=== PATIENT | male | born 1960 | race Caucasian/White ===

== ENCOUNTER 2018-09-06 18:45 | Emergency (ER) | payer SELFPAY ==
[2018-09-06 18:46] VITALS: BP 141/92; PULSE 80; RESP 14; TEMP 37.1; O2SAT 93; BMI 20.9
[2018-09-06 19:33] VITALS: TEMP 37.1
[2018-09-06 20:00] VITALS: TEMP 37.1
[2018-09-06 20:36] LABS: Mucous, Urine 0 SEEN /hpf (<or=2+); Squamous Epithelial Cells - UA 0 SEEN /hpf (0-5)
[2018-09-06 20:43] LABS: Color, Urine Red (Yellow); Glucose, Dipstick Normal (Normal); Ketone-Dipstick 5 mg/dl (Negative); Leukocyte Esterase-Dipstick 500 /ul (Negative); Nitrite-Dipstick Positive (Negative); Occult Blood-Urine 250 /ul (Negative); Protein-Dipstick 500 mg/dl (Negative); Specific Gravity, Urine 1.015 (1.002-1.030); Urine Bilirubin Dipstick Negative (Negative); Urine Clarity Cloudy (Clear); Urine Urobilinogen 1 mg/dl (Normal)
[2018-09-06 20:51] LABS: Bacteria 1+ /hpf (None Seen); Red Blood Cells-Urine > 100 SEEN /hpf (0-5); White Blood Cells >100 SEEN /hpf (0-5)
[2018-09-06 21:00] VITALS: BP 145/88; PULSE 88; RESP 16; TEMP 37; O2SAT 99
--- NOTE | 2018-09-06 21:31 | ED.DCSUM_ITS ---
History of Present Illness Chief Complaint: Complaint Detail of Chief Complaint: dysuria Informant: Patient Onset: Weeks - 2 Context: Gradual Onset Timing: Continuous - when urinating Quality: discomfort Location: entire penis Current Severity: Moderate Maximum Severity: Moderate Worsened by: urinating Relieved by: nothing Associated Symptoms: hemturia x 4d Narrative: Patient has had about 2 weeks of gradual onset of discomfort while urinating and urinary frequency. He thinks his urine stream has not been unchanged. He denies any nocturia. No fevers, back discomfort, or abdominal pain. No nausea or vomiting. Now hematuria that looks like Kadeem-Aid with some clots for the past 4 days or so. He has never had any prostate issues that he knows of, but he is having discomfort in his perineal area especially when he urinates. No scrotal pain. He has noticed a trace amount of discharge in between urinating since he has had hematuria, but it looks like serosanguineous. He is monogamous, but had a suspicion that may be his significant other was untruthful when she said she was only with him. He has never had gonorrhea or chlamydia that he knows of. Past Medical History - Allergies and Home Meds Allergies/Adverse Reactions: Allergies No Known Allergies Allergy (Verified 09/06/18 18:46) Primary Care Physician: Eddy Cooper MD [Primary Care Provider] - Past Medical History: None Lives: Spouse/ Significant Other Smoking Status: Current every day smoker Review of Systems General: Denies: Chills, Fever Cardiovascular: Denies: Chest pain, Palpitations Respiratory: Denies: Dyspnea, Cough Gastrointestinal: Reports: - - Feels bloated. Denies: Abdominal pain, Nausea, Vomiting Genitourinary: Reports: Dysuria, Hematuria, Frequency, - - Urgency. No urinary retention. Musculoskeletal: Reports: Arthralgias - Chronic, unchanged, Back pain - Musculoskeletal, chronic, unchanged. Denies: Swelling, Extremity Pain Skin: Denies: Rash, Wounds Physical Exam Vital Signs/Narrative: Vital Signs Temp Pulse Resp BP Pulse Ox 09/06/18 20:00 98.7 F 09/06/18 19:33 98.8 F 09/06/18 18:46 98.8 F 80 14 141/92 H 93 Inital Vital Signs reviewed: Yes General: Well nourished, Well developed, No Acute Distress Head: Normocephalic, Atraumatic Abdomen: Soft, Nontender, Nondistended, Normal bowel sounds Rectal: Nontender - Specifically, prostate feels smooth without irregularities and is nontender. Back: Nontender, Normal Inspection. Negative for: CVA tenderness Extremities: Nontender, No edema Skin: Normal color, No rash, No Trauma Neurological: Alert, Oriented x3, Cranial nerves II-XII grossly intact, Normal Strength, Normal Sensation, Normal Gait Psychological: Normal affect, Normal Mood Diagnostic/Tx/Re-eval Laboratory Tests 09/06/18 Range/Units 18:35 Urine Color Red (Yellow) Urine Clarity Cloudy (Clear) Urine pH 8.0 (5.0 - 8.0) Ur Specific [place] 1.015 (1.002-1.030) Urine Protein 500 H (Negative) mg/dl Urine Glucose (UA) Normal (Normal) mg/dl Urine Ketones 5 H (Negative) mg/dl Urine Occult Blood 250 H (Negative) /ul Urine Nitrite Positive H (Negative) Urine Bilirubin Negative (Negative) mg/dL Urine Urobilinogen 1 H (Normal) mg/dl Ur Leukocyte Esterase 500 H (Negative) /ul Urine RBC > 100 SEEN (0-5) /hpf Urine WBC >100 SEEN (0-5) /hpf Ur Squamous Epith Cells 0 SEEN (0-5) /hpf Urine Bacteria 1+ (None Seen) /hpf Urine Mucus 0 SEEN (<or=2+) /hpf - Medical Decision Making Labs shows pyuria and signs of infection. Sent for culture. He declines Laura catheter for irrigation even knowing the risks of urinary retention which he has not had yet. I sent for GC and chlamydia which is pending. He would like to be covered for that just in case, so I will give him an injection of Rocephin in addition to a prescription for Doxy. Will be advised to follow-up with urology as an outpatient. No flank pain, I felt like with a positive urine and likely having cystitis, I did not feel the need to CT him at this time. ED Disposition - Plan for ED Patient: Disposition: Home or Assisted Living Diagnosis: Hemorrhagic cystitis Instructions: ED UTI Cystitis Male Prescriptions: Doxycycline 100 mg PO BID #20 cap Phenazopyridine HCl [Pyridium] 200 mg PO TID #6 tab Referrals: Eddy Cooper MD [Primary Care Provider] - Eliecer Hill MD [STAFF PHYSICIAN] - (Call for appointment next week)
[2018-09-06] MEDS: Ceftriaxone 500 MG Vial 250 MG IM (22:03)
[2018-09-06] MEDS: Phenazopyridine 95 MG Tablet PO (22:03)
[2018-09-06] MEDS: Doxycycline 100 MG CAPSULE PO (22:04)
[2018-09-06 22:05] VITALS: BP 184/89; PULSE 97; RESP 16; O2SAT 100
--- NOTE | 2018-09-06 22:19 | ED.RN ---
PT WAS OBSERVED SHOT TIME, NO REACTION NOTED BY THIS NURSE.
[2018-09-06 22:28] LABS: Chlamydia Trachomatis by PCR Negative (Negative); Neisserai gonorrhoeae by PCR Negative (Negative); Probe Check PASS; Sample Adequacy Control PASS; Specimen Processing Control PASS
== END 2018-09-06 22:20 | disposition home or self-care (01) ==
PROVIDERS: Emergency Provider Emergency Medicine; Family Provider Family Medicine; PCP Family Medicine
DX: N30.91 Cystitis, unspecified with hematuria (principal); F17.200 Nicotine dependence, unspecified, uncomplicated
CPT/HCPCS: 81001; 87086; 87491; 87591; 96372; 99283

== ENCOUNTER 2019-10-06 15:50 | Emergency (ER) | payer SELFPAY ==
[2019-10-06 15:51] VITALS: BP 118/72; PULSE 57; RESP 20; TEMP 36.7; O2SAT 100; BMI 20.4
--- NOTE | 2019-10-06 15:57 | ED.RN ---
WHILE ATTEMPTING TO TRIAGE THE PT. WHEN ASKED HOW LONG CHEST PAIN WAS OCCURRING PT STATES FUCK I DON'T KNOW. I ALREADY FUCKING TOLD YOU. WHERE THE FUCK IS THE DOCTOR? THIS IS BULLSHIT. WHEN ASKED TO RATE HIS CHEST PAIN PT STATES IT IS FUCKING GONE. I DON'T HAVE ANY FUCKING CHEST PAIN, THE PAIN IS IN MY LOWER BACK. I SHOULD JUST FUCKING GO HOME NOW. PT REQUESTING SOMETHING TO DRINK. THIS NURSE INFORMED THE PT THAT HE WOULD HAVE TO WAIT FOR SOMETHING TO DRINK UNTIL THE DOCTOR WAS ABLE TO SEE HIM. PT STATES THIS IS FUCKING BULLSHIT. I NEED SOMETHING TO DRINK. WHERE THE FUCK IS THE DOCTOR? GIVE ME ONE OF THOSE FUCKING MOUTH SWAB THINGS. MY MOUTH IS SO DRY MY LIPS ARE STICKING TO MY TEETH. WHEN ASKED ABOUT HIS ALLERGIES THAT PT STATES I DON'T KNOW IT'S FUCKING IN THERE. PT INFORMED THAT THE COMPUTER SYSTEM HAS HIM LISTED NO KNOWN ALLERGIES.
--- NOTE | 2019-10-06 16:11 | CT_ITS ---
STUDY: CTA OF THE ABDOMINAL AORTA AND BILATERAL LOWER EXTREMITIES REASON FOR EXAM: Male, 59 years old. Chest, abdomen and back pain RADIATION DOSAGE (If Supplied By Facility): CTDIvol = ( 12.74 ) mGy, DLP = ( 492.22 ) mGycm TECHNIQUE: Axial CT angiography multi-detector data acquisition was obtained from the diaphragm to the sacrum following intravenous administration of Isovue 370 100ml. Axial images and MIP images were reconstructed from the axial data set. Post-processing of the angiographic images was performed, with multiplanar reformation and 3D reconstruction. Individualized dose optimization techniques were used for this CT. TECHNICAL QUALITY: Good COMPARISON: None. Descriptors of Narrowing: None (0%) Mild (< 50%) Moderate (50-70%) Severe (70-90%) Subtotal/Total Occlusion (90-100%) Non-Evaluable (technically non-diagnostic FINDINGS: Abdominal aorta: Atherosclerotic calcifications. No aneurysm or dissection Celiac and superior mesenteric arteries: There is mild proximal narrowing. Inferior mesenteric artery: No demonstrated narrowing. Right renal artery(arteries): No demonstrated narrowing. Left renal artery(arteries): No demonstrated narrowing. Right common iliac artery: There is mild diffuse narrowing. Right external iliac artery: No demonstrated narrowing. Right internal iliac artery: No demonstrated narrowing. Left common iliac artery: There is mild diffuse narrowing. Left external iliac artery: No demonstrated narrowing. Left internal iliac artery: No demonstrated narrowing. The visualized lung bases are unremarkable. The visualized portions of the heart are within normal limits. Normal liver. Normal gallbladder and extrahepatic biliary system. Normal spleen. Normal pancreas. Normal bilateral adrenal glands. Normal right kidney. Normal left kidney. Normal visualized stomach. Normal small intestine. There are multiple colonic diverticula consistent with diverticulosis. There is non-visualization of the appendix. Normal inferior vena cava. Normal retroperitoneum. Normal abdominal wall. There is degenerative change of the spine. CT/CTA Abdomen W/WO Contrast IMPRESSION: Atherosclerotic calcifications. No aneurysm or dissection. Colonic diverticulosis. Electronically Signed: Robert Peres MD at 17:28 EDT , Service support ,
--- NOTE | 2019-10-06 16:11 | CT_ITS ---
STUDY: CTA CHEST REASON FOR EXAM: Male, 59 years old. Chest, abdomen and back pain RADIATION DOSAGE (If Supplied By Facility): CTDIvol = ( 12.74 ) mGy, DLP = ( 492.22 ) mGycm TECHNIQUE: The examination was performed with the intravenous administration of IV 100mL Isovue-370. Post-processing of the angiographic images was performed, with multiplanar reformation and 3D reconstruction. Individualized dose optimization techniques were used for this CT. COMPARISON: February 05, 2011 FINDINGS: Normal enhancement of the main pulmonary artery and right and left pulmonary arteries. There is limited enhancement of the bilateral peripheral pulmonary arteries. There is no demonstrated pulmonary embolism. There is atherosclerotic calcification of the aortic arch with tortuosity. There is aneurysmal dilatation of the ascending aorta. The transverse diameter of the ascending aorta measures 46 mm''s. There is no demonstrated aortic dissection. There are calcifications of the coronary arteries. Normal mediastinum. Normal hilar regions. Normal visualized trachea and bronchi. The lungs are well expanded. There is emphysema of the upper lungs. There are mild fibrotic densities present. There is no focal infiltrate. Normal pleura. Normal chest wall structures. Mild compression fractures of mid thoracic vertebra. Normal visualized upper abdomen. CT/CTA Chest W/WO Contrast IMPRESSION: CTA chest examination, without a demonstrated pulmonary embolism or arterial dissection. Atherosclerosis. Aneurysmal dilatation of the ascending aorta. Emphysema and fibrotic densities. Electronically Signed: Robert Peres MD at 17:23 EDT , Service support ,
--- NOTE | 2019-10-06 16:12 | EKG12_ITS ---
Test Reason : CP Blood Pressure : / mmHG Vent. Rate : 058 BPM Atrial Rate : 058 BPM P-R Int : 156 ms QRS Dur : 100 ms QT Int : 472 ms P-R-T Axes : 069 -15 037 degrees QTc Int : 463 ms Sinus bradycardia Nonspecific T wave abnormality Prolonged QT Abnormal ECG Confirmed by SHLOMO CONWAY ([id number]), magazine editor MINDY HOLGUIN ([id number]) on 10/14/2019 8:18:50 AM Referred By: AGNIESZKA Confirmed By:SHLOMO CONWAY
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
[2019-10-06] MEDS: Ondansetron 4 MG/2 ML Vial IV (16:22)
[2019-10-06] MEDS: Morphine 4 MG/ML Syringe IV (16:25)
[2019-10-06 16:38] LABS: Prothrombin Time (Protime)PT. 13.1 SECONDS (11.7-14.9)
[2019-10-06 16:40] LABS: AST(SGOT) 14 U/L (15-37); Alanine Aminotransfer ALT/SGPT 22 U/L (16-61); Albumin, Serum 3.7 g/dL (3.2-5.0); Alkaline Phosphatase 90 U/L (45-117); Anion Gap 6 (5-15); BUN 15 mg/dL (7-18); BUN/Creat Ratio 13.9 RATIO (10-20); Calcium,Total 8.7 mg/dL (8.5-10.1); Chloride 106 mmol/L (98-107); Creatinine, Serum 1.08 mg/dL (0.70-1.30); EST Glomerular Filtration Rate 75 mL/min (>60); Est Glom Filt Rate - Afr Amer 91 mL/min (>60); Estimated Creatinine Clearance 75.04 ml/min; Globulin 3.7 g/dL (2.2-4.2); Glucose 106 mg/dL (74-106); Lipase 292 U/L (73-393); Potassium 3.8 mmol/L (3.5-5.1); Protein, Total 7.4 g/dL (6.4-8.2); Sodium Level 139 mmol/L (136-145)
[2019-10-06 16:46] LABS: Absolute Lymphocyte Count 3.19 X10^3/uL (0.83-4.51); Absolute Neutrophil Count 6.8 X10^3/uL (2.0-7.7); Basophil# 0.03 X10^3/uL; Basophil% 0.3 % (0-1); Eosinophil# 0.08 X10^3/uL; Eosinophils% 0.7 % (0-5); Hemoglobin 15.6 g/dL (13.0-16.5); Lymphocyte # 3.19 X10^3/ul (4.0); Lymphocyte % 29.1 % (19-41); Mean Corp Hgb Conc 33.2 g/dL (32-36); Mean Corpuscular Hgb 31.9 pg (27.0-32.0); Mean Corpuscular Volume 96.1 fL (80-94); Mean Platelet Vol. 11.7 fl (6.2-12.0); Monocyte# 0.79 X10^3/uL; Monocyte% 7.2 % (0-10); NRBC Flagged by Analyzer 0 % (0-5); Neutrophil # 6.84 X10^3/uL (2.7-7.7); Neutrophil % 62.4 % (47-70); Platelet Count 259 K/mm3 (150-450); RBC Distribution Width CV 13.8 % (11.6-14.6); RBC Distribution Width SD 49.2 fl (35.1-43.9); Red Blood Count 4.89 M/mm3 (4.6-6.2)
[2019-10-06 18:30] VITALS: BP 171/95; PULSE 52; RESP 18; O2SAT 100
== END 2019-10-06 18:31 | disposition home or self-care (01) ==
PROVIDERS: Emergency Provider Emergency Medicine; PCP Family Medicine
DX: M54.5 Low back pain (principal); R07.9 Chest pain, unspecified; R55 Syncope and collapse; R10.84 Generalized abdominal pain; M79.606 Pain in leg, unspecified; I10 Essential (primary) hypertension; Z91.14 Patient's other noncompliance with medication regimen; F17.200 Nicotine dependence, unspecified, uncomplicated
CPT/HCPCS: 71275; 74175; 80053; 83690; 84484; 85025; 85610; 93005; 96374; 96375; 99285; Q9967; A4216; J2405

== ENCOUNTER 2021-01-03 05:45 | Emergency (ER) | payer SELFPAY ==
[2021-01-03] VITALS (7 sets, daily range): BP systolic 162–169; BP diastolic 98–117; PULSE 74–83; RESP 18–26; TEMP 36.4–36.6; O2SAT 91–97; BMI 24.0
--- NOTE | 2021-01-03 06:05 | RAD_ITS ---
STUDY: X-RAY CHEST REASON FOR EXAM: Male, 60 years old patient with chest pain. TECHNIQUE: Two AP portable views of the chest. COMPARISON: Chest radiograph dated 02/05/2011. FINDINGS: Cardiac monitoring leads are present. The lungs are hyperexpanded. There is interstitial thickening in both lungs greatest at the lung bases. There is patchy groundglass attenuation at the lung bases. There is no demonstrated pleural abnormality. There is mild cardiac enlargement. Normal mediastinum and leena. Normal visualized pulmonary arteries. There is atherosclerotic calcification of the aortic arch with tortuosity. Normal visualized thoracic spine. Normal visualized ribs, clavicles, and shoulders. There is no demonstrated abnormality of the visualized soft tissue structures of the upper abdomen. RAD/Chest 1 View (Portable) IMPRESSION: Findings suggest possible sequela of viral infection and/or acute exacerbation of reactive airway disease. Electronically Signed: Em Esteban MD at 6:41 EDT , Service support ,
--- NOTE | 2021-01-03 06:05 | EKG12_ITS ---
Test Reason : CP Blood Pressure : / mmHG Vent. Rate : 078 BPM Atrial Rate : 078 BPM P-R Int : 166 ms QRS Dur : 102 ms QT Int : 410 ms P-R-T Axes : 046 -32 085 degrees QTc Int : 467 ms Normal sinus rhythm Left axis deviation Left ventricular hypertrophy T wave abnormality, consider lateral ischemia Abnormal ECG Confirmed by EMELINA MIGUEL, RORY ([id number]), book or script editor HUONG WAGONER ([id number]) on 01/04/2021 2:04:26 PM Referred By: CHRISTA Confirmed By:RORY TARANGO MD
--- NOTE | 2021-01-03 06:07 | EX.ED.DYSGE1 ---
HPI History of Present Illness Chief Complaint: Chest Pain Detail of Chief Complaint: Shortness of breath and intermittent chest pain Informant: patient Narrative Narrative: Patient presents to the emergency department with shortness of breath over the last 2 to 3 days. Patient complains of exertional dyspnea. He has had a cough that is mostly nonproductive. Patient believes he had Covid several weeks ago but was never tested. Patient denies any fevers. Patient also describes some intermittent chest discomfort like somebody standing on his chest at sometimes is exertional and sometimes it is not. Patient has no heart history. Patient does not see a doctor. He denies recent travel or surgery. Patient is a smoker and admits to occasional marijuana use as well as methamphetamine use. Prior similar symptoms: No PFSH PFSH Medical History (Updated 01/03/21 @ 07:[address] Sheba Brush, ) COPD (chronic obstructive pulmonary disease) Home Medications albuterol sulfate [Ventolin HFA] 1 - 2 puff INHALATION Q4H PRN PRN #1 inhaler 01/03/21 [Rx Last Taken Unknown] prednisone 20 mg PO BID #10 tab 01/03/21 [Rx Last Taken Unknown] Allergy/AdvReac Type Severity Reaction Status Date / Time ANTI-INFLAMMATORY Allergy PT UNSURE Uncoded 01/03/21 05:54 OF REACTION Social History Smoking Status: Current every day smoker tobacco type: cigarettes ROS ROS ED Constitutional Constitutional ED: Reports systems reviewed and no addt'l complaints, except as documented; Denies body ache(s), change in weight or chills Eyes Eyes: Denies acute decrease in peripheral vision, change in vision, double vision or loss of vision ENT ENT ED: Reports none; Denies ear pain, lip swelling, loss taste/smell, neck pain, otalgia or sore throat Cardiovascular Cardiovascular: Reports none and chest pain; Denies abdominal pain, chest pain with activity, leg edema, lightheadedness, palpitations, rapid heart rate or syncope Respiratory/Chest Respiratory/Chest: Reports none, cough and dyspnea; Denies change in mental status, dry cough, hemoptysis, shortness of breath at rest, shortness of breath with exertion or sputum Gastrointestinal Gastrointestinal: Reports none; Denies abdominal pain, change in stool character, diarrhea, hematemesis, hematochezia, melena, rectal bleeding or vomiting Genitourinary Genitourinary ED: Reports none; Denies abdominal discomfort, anuria, dysuria, genital pain or polyuria Musculoskeletal Musculoskeletal: Reports none; Denies arthralgias, back pain, difficulty walking, extremity pain, muscle weakness or myalgias Integumentary Reports none; Denies abscess or rash Neurologic Neurologic: Reports none; Denies abnormal gait, confusion, focal weakness, frequent falls, headache(s), loss of vision, numbness, paresthesias, radicular pain, vertigo or weakness Psychiatric Psychiatric: Reports systems reviewed and no addt'l complaints, except as documented and none; Denies behavioral changes, confusion, difficulty concentrating, hallucinations, suicidal ideation, tactile hallucinations or visual hallucinations Endocrine Endocrinology: Denies none, cold intolerance, excessive sweating, fatigue or heat intolerance Hematologic/Lymphatic Hematologic/Lymphatic: Reports none; Denies anemia, easy bleeding or easy bruising Allergic/Immunologic Allergic/Immunologic ED: Denies as per HPI, none, lip swelling, mouth swelling, throat swelling, tongue swelling or hives EXAM Physical Exam Const Vital Signs: 01/03/21 05:47 01/03/21 05:49 01/03/21 06:17 Temperature 97.8 F 97.8 F Temperature Source Temporal Temporal Pulse Rate 78 78 Respiratory Rate 26 H 26 H Respiratory Effort Short of Breath Blood Pressure 163/114 H 163/114 H Blood Pressure Mean 130 130 Pulse Ox 97 97 97 Oxygen Delivery Method Room Air Room Air Nasal Cannula Oxygen Flow Rate (L/min) 2 01/03/21 06:20 01/03/21 07:05 Temperature 97.8 F Temperature Source Temporal Pulse Rate 76 83 Respiratory Rate 22 H 19 H Respiratory Effort Blood Pressure 169/117 H Blood Pressure Mean 134 Pulse Ox 92 Oxygen Delivery Method Room Air Oxygen Flow Rate (L/min) Positive well nourished and well developed General Appearance ED: well developed and NAD HEENT Reports TM's clear and moist mucous membranes normocephalic and atraumatic; Negative for trauma or tenderness Tympanic Membrane ED: Yes TM's clear Eyes PERRL and EOMs intact bilaterally General Eye ED: Negative for pale conjunctiva or scleral icterus Neck no lymphadenopathy, supple and no JVD General: Negative for tenderness Chest Wall inspection of chest normal and palpation of chest normal Chest: Negative for tenderness Resp normal respiratory effort Effort and Inspection: Negative for respiratory distress or pain with movement Auscultation: rhonchi, wheezes and diminished lung sounds Cardio regular rate, regular rhythm, S1 normal heart sound, S2 normal heart sound and no murmurs Peripheral Pulses: pulses 2+ throughout GI normal to inspection, nondistended, normoactive bowel sounds, soft to palpation, non-tender, non-distended and no masses Back/Spine no CVA tenderness and no thoracic nor lumbar tenderness Extremity normal to inspection General Extremety ED: Negative for edema General Extremity: Negative for edema Neuro oriented x3, CN's II-XII intact bilaterally, no sensory deficits noted and gait normal Sensorium / Orientation: awake, alert, oriented to person, oriented to place and oriented to time Motor Exam: strength 5/5 throughout and strength abnormal Psych mental status grossly normal Skin no rashes or lesions noted and no wounds MDM MDM MDM Narrative Medical decision making narrative: Patient received DuoNeb aerosol started on Solu-Medrol 125 mg IV. Patient received aspirin. Covid 19 testing was negative. Chest x-ray showed findings suggestive of sequela viral infection and/or acute exacerbation of reactive airway disease. D-dimer test ordered and pending. Care of patient will be turned over to morning physician awaiting results and if elevated will require CTA and if negative I feel patient can be discharged to home with albuterol MDI and prednisone. Patient will be referred to primary care physician freedom of information officer for no doc for follow-up. I do not feel patient is having acute coronary syndrome. Patient's heart score is a 3. Lab Data Attestation: I reviewed the patient's lab results. Labs: Laboratory Results - last 24 hr 01/03/21 01/03/21 01/03/21 06:09 06:09 06:09 WBC 10.3 RBC 4.63 Hgb 14.3 Hct 43.9 MCV 94.8 H MCH 30.9 MCHC 32.6 RDW Std Deviation 48.1 H RDW Coeff of Kylee 13.9 Plt Count 238 MPV 12.0 Immature Gran % (Auto) 0.400 Neut % (Auto) 63.8 Lymph % (Auto) 23.9 [place] % (Auto) 9.5 Eos % (Auto) 2.0 Baso % (Auto) 0.4 Absolute Neuts (auto) 6.6 Absolute Lymphs (auto) 2.45 Nucleated RBC % 0 D-Dimer Quant (PE/DVT) 0.46 Sodium 136 Potassium 4.0 Chloride 105 Carbon Dioxide 24.0 Anion Gap 7 BUN 17 Creatinine 0.94 Estim Creat Clear Calc 94.02 Est GFR (MDRD) Af Amer 105 Est GFR (MDRD) Non-Af 87 BUN/Creatinine Ratio 18.0 Glucose 112 H Calcium 8.5 Troponin I High Sens 24 Radiography Chest X-Ray - ED: 1 View Diagnostic Testing: Radiology Impression Chest X-Ray 01/03/21 06:05 IMPRESSION: Findings suggest possible sequela of viral infection and/or acute exacerbation of reactive airway disease. Electronically Signed: Em Esteban MD at 6:41 EDT , Service support , 1 view chest x-ray obtained showed hyperinflation on my interpretation as well as mild increased markings in both lower lobes. Radiology felt patient had findings suggestive of possible sequela viral infection and/or acute exacerbation of reactive airway disease. EKG Initial EKG: Attestation: I personally reviewed and interpreted this EKG as follows: Comments: Sinus rhythm with a ventricular rate of 78 bpm with some nonspecific ST changes noted. Prior EKG tracings: available for review Prior: Unchanged Discharge Plan Triage Chief Complaint: Chest Pain ED Provider: Sheba Brush Dx/Rx/DC Orders Clinical Impression: Acute exacerbation of chronic obstructive pulmonary disease, Chest pain Instructions: ED COPD Flare, ED Chest Pain, Uncertain Cause Prescriptions: New albuterol sulfate [Ventolin HFA] 1 INHALER inhaler 1 - 2 puff inhalation Q4H PRN PRN (Reason: Wheezing) Qty: 1 RF: 0 prednisone 20 mg tablet 20 mg PO BID Qty: 10 RF: 0 Primary Care Provider: Eddy Cooper Referrals: Eddy Cooper MD [Primary Care Provider] - 3-5 Days
[2021-01-03] MEDS: Ipratropium/Albuterol Sulfate 3 ML AMPUL.NEB INHALATION (06:20)
[2021-01-03 06:27] LABS: Absolute Lymphocyte Count 2.45 X10^3/uL (0.83-4.51); Absolute Neutrophil Count 6.6 X10^3/uL (2.0-7.7); Basophil# 0.04 X10^3/uL; Basophil% 0.4 % (0-1); Eosinophil# 0.21 X10^3/uL; Hematocrit 43.9 % (40-54); Hemoglobin 14.3 g/dL (13.0-16.5); Lymphocyte # 2.45 X10^3/ul (0.83-4.51); Lymphocyte % 23.9 % (19-41); Mean Corp Hgb Conc 32.6 g/dL (32-36); Mean Corpuscular Hgb 30.9 pg (27.0-32.0); Mean Corpuscular Volume 94.8 fL (80-94); Monocyte# 0.97 X10^3/uL; Monocyte% 9.5 % (0-10); NRBC Flagged by Analyzer 0 % (0-5); Neutrophil # 6.55 X10^3/uL (2.7-7.7); Neutrophil % 63.8 % (47-70); Platelet Count 238 K/mm3 (150-450); RBC Distribution Width CV 13.9 % (11.6-14.6); RBC Distribution Width SD 48.1 fl (35.1-43.9); Red Blood Count 4.63 M/mm3 (4.6-6.2); White Blood Count 10.3 K/mm3 (4.4-11.0)
[2021-01-03] MEDS: Aspirin 81 MG TAB.CHEW 324 MG PO (06:35)
[2021-01-03] MEDS: 0.9% Normal Saline 1,000 ML 150 ML IV (06:35)
[2021-01-03 06:46] LABS: Anion Gap 7 (5-15); BUN 17 mg/dL (7-18); Calcium,Total 8.5 mg/dL (8.5-10.1); Chloride 105 mmol/L (98-107); Creatinine, Serum 0.94 mg/dL (0.70-1.30); EST Glomerular Filtration Rate 87 mL/min (>60); Est Glom Filt Rate - Afr Amer 105 mL/min (>60); Estimated Creatinine Clearance 94.02 ml/min; Glucose 112 mg/dL (74-106); Sodium Level 136 mmol/L (136-145); Troponin-I HS 24 pg/mL (3.0-78.0)
[2021-01-03 07:27] LABS: D-Dimer Quantitative (DVT/PE) 0.46 FEU/ug/m (0.27-0.49)
[2021-01-03] MEDS: MethylPREDNISolone 125 MG/2 ML Vial IV (07:48)
[2021-01-03] MEDS: LORazepam 2 MG/ML Syringe 1 MG IV (07:51)
[2021-01-03 09:26] LABS: Troponin-I HS 24 pg/mL (3.0-78.0)
== END 2021-01-03 11:15 | disposition home or self-care (01) ==
PROVIDERS: Emergency Medicine; Emergency Provider Emergency Medicine; PCP Family Medicine
DX: J44.1 Chronic obstructive pulmonary disease with (acute) exacerbation (principal); R07.9 Chest pain, unspecified; F17.210 Nicotine dependence, cigarettes, uncomplicated
CPT/HCPCS: 71045; 80048; 84484; 85025; 85379; 87426; 93005; 94640; 96361; 96374; 96375; 99284

== ENCOUNTER 2022-06-07 07:09 | Emergency (ER) | payer MEDICAID, SELFPAY ==
[2022-06-07 07:10] VITALS: BP 139/115; PULSE 80; RESP 16; TEMP 36.6; O2SAT 97
[2022-06-07 07:37] VITALS: RESP 18
--- NOTE | 2022-06-07 07:37 | EX.ED.VIS.EY ---
HPI History of Present Illness Chief Complaint: Eye Problem Narrative Narrative: 61-year-old male presenting with iritis. This is a chronic condition. He is supposed to take prednisolone acetate 1 drop to each hour as needed to soothe his eye irritation. 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 Usually in his right eye. He is prescribed medication for this. He sees the [facility] in [facility]. He states he ran out of his prednisolone acetate. He noticed his eye was irritated this morning. No history of trauma. No visual complaints. PFSH PFS Medical History COPD (chronic obstructive pulmonary disease) Home Medications albuterol sulfate 90 mcg/actuation aerosol inhaler (Ventolin HFA) 1 - 2 puff inhalation Q4H PRN PRN Wheezing ##1 01/03/21 [Rx Last Taken Unknown] prednisone 20 mg tablet 20 mg PO BID #10 tabs 01/03/21 [Rx Last Taken Unknown] prednisolone acetate 1 % eye drops,suspension 1 drp EACH EYE Q1H #15 mL 06/07/22 [Rx Last Taken Unknown] Allergy/AdvReac Type Severity Reaction Status Date / Time ANTI-INFLAMMATORY Allergy PT UNSURE Uncoded 06/07/22 07:12 OF REACTION Social History Smoking Status: Current every day smoker tobacco type: cigarettes ROS ROS ED Constitutional Constitutional ED: Denies chills, fever(s) or sweats Eyes Eyes: Reports other Details: Right eye pain and erythema ; Denies blurry vision or change in vision ENT ENT ED: Denies ear pain or sore throat Cardiovascular Cardiovascular: Denies chest pain, palpitations or racing heartbeat Respiratory/Chest Respiratory/Chest: Denies cough, dyspnea or sputum Gastrointestinal Gastrointestinal: Denies abdominal pain, constipation, diarrhea, nausea or vomiting Genitourinary Genitourinary ED: Denies dysuria, hematuria or urinary frequency Musculoskeletal Musculoskeletal: Denies arthralgias, myalgias or neck pain Integumentary Denies abscess, Abrasions or rash Neurologic Neurologic: Denies headache(s), paresthesias or weakness Psychiatric Psychiatric: Denies anxiety, depression, suicidal ideation or suicidal thoughts Endocrine Endocrinology: Denies polydipsia or polyuria EXAM Physical Exam Const Vital Signs: 06/07/22 07:10 Temperature 97.8 F Temperature Source Temporal Pulse Rate 80 Respiratory Rate 16 Blood Pressure 139/115 H Blood Pressure Mean 123 Pulse Ox 97 Oxygen Delivery Method Room Air Positive well nourished General Appearance ED: NAD HEENT atraumatic Eyes PERRL and EOMs intact bilaterally Visual Acuity: acuity normal Eyelid: eyelids normal Sclera: sclera abnormal Positive for right Details: scleral injection Details: Positive for diffuse Neck no lymphadenopathy Resp normal respiratory effort Cardio regular rate and regular rhythm GI non-tender Neuro oriented x3 and CN's II-XII intact bilaterally Sensorium / Orientation: alert Skin no wounds MDM MDM MDM Narrative Medical decision making narrative: Patient presenting for evaluation of right eye irritation. He has an iritis which she states is due to having Patricio's disease. He has a medication that he uses to dilate his eye when this occurs and he has run out of his prednisone acetate. He request a refill of this of this. Unfortunately on abdominal evaluation at 7:30 AM and he needs to be according 8 AM. I did send this to the pharmacy. He states that he will go to court and have his friend fruit picker machine operator his drops while he is there so he can bring them to him. Patient discharged stable condition. Impression: 1. Iritis 2. History of Patricio's disease Lab Data Attestation: I reviewed the patient's lab results. Discharge Plan Triage Chief Complaint: Eye Problem ED Provider: Antoine Ricks Dx/Rx/DC Orders Instructions: ED Iritis Prescriptions: New prednisolone acetate 1 % drops,suspension 1 drp EACH EYE Q1H Qty: 15 0RF No Action albuterol sulfate [Ventolin HFA] 1 INHALER inhaler 1 - 2 puff inhalation Q4H PRN PRN (Reason: Wheezing) Qty: 1 0RF prednisone 20 mg tablet 20 mg PO BID Qty: 10 0RF Primary Care Provider: Eddy Cooper Referrals: Eddy Cooper MD [Primary Care Provider] - Disposition Disposition: Home, Self Care
== END 2022-06-07 07:45 | disposition home or self-care (01) ==
LOC: ED 07:47
PROVIDERS: Emergency Provider Student in an Organized Health Care Education/Training Program; PCP Family Medicine; Visit Provider Student in an Organized Health Care Education/Training Program
DX: H20.11 Chronic iridocyclitis, right eye (principal); J44.9 Chronic obstructive pulmonary disease, unspecified; F17.210 Nicotine dependence, cigarettes, uncomplicated; Z79.899 Other long term (current) drug therapy; Z87.898 Personal history of other specified conditions
CPT/HCPCS: 99282

== ENCOUNTER 2022-08-26 09:59 | Emergency (ER) | payer MEDICAID, SELFPAY ==
[2022-08-26 10:00] VITALS: BP 133/79; PULSE 54; RESP 16; TEMP 36.1; O2SAT 96; BMI 22.9
[2022-08-26 10:06] VITALS: BP 134/91; PULSE 52; RESP 17; O2SAT 98
[2022-08-26 10:13] VITALS: PULSE 46
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
--- NOTE | 2022-08-26 10:19 | EKG12_ITS ---
Test Reason : cp Blood Pressure : / mmHG Vent. Rate : 052 BPM Atrial Rate : 052 BPM P-R Int : 196 ms QRS Dur : 100 ms QT Int : 436 ms P-R-T Axes : 058 -19 021 degrees QTc Int : 405 ms Sinus bradycardia Septal infarct , age undetermined Abnormal ECG Confirmed by KAMI MIGUEL, OSMIN ([id number]), video effects editor MINDY HOLGUIN ([id number]) on 08/28/2022 11:26:43 A M Referred By: Confirmed By:PARVEEN MCCLURE MD
[2022-08-26 10:21] VITALS: O2SAT 98
[2022-08-26 10:32] LABS: Absolute Neutrophil Count 3.7 X10^3/uL (2.0-7.7); Basophil# 0.03 X10^3/uL; Basophil% 0.4 % (0-1); Eosinophil# 0.15 X10^3/uL; Eosinophils% 2.2 % (0-5); Hematocrit 41.8 % (40-54); Hemoglobin 14.1 g/dL (13.0-16.5); Lymphocyte % 29.9 % (19-41); Mean Corp Hgb Conc 33.7 g/dL (32-36); Mean Corpuscular Hgb 31.2 pg (27.0-32.0); Mean Corpuscular Volume 92.5 fL (80-94); Mean Platelet Vol. 10.6 fl (6.2-12.0); Monocyte# 0.78 X10^3/uL; Monocyte% 11.7 % (0-10); NRBC Flagged by Analyzer 0 % (0-5); Neutrophil # 3.71 X10^3/uL (2.7-7.7); Neutrophil % 55.7 % (47-70); Platelet Count 249 K/mm3 (150-450); RBC Distribution Width CV 13.6 % (11.6-14.6); RBC Distribution Width SD 46.5 fl (35.1-43.9); Red Blood Count 4.52 M/mm3 (4.6-6.2); White Blood Count 6.7 K/mm3 (4.4-11.0)
--- NOTE | 2022-08-26 10:36 | RAD_ITS ---
STUDY: X-RAY CHEST REASON FOR EXAM: Male, 61 years old. Chest pain TECHNIQUE: AP portable view of the chest. COMPARISON: January 03, 2021 FINDINGS: The lungs are clear and hyperexpanded. There is no demonstrated pleural abnormality. Normal size heart. Normal mediastinum and leena. Normal visualized pulmonary arteries. Normal visualized aortic arch and descending thoracic aorta. Normal visualized thoracic spine. Normal visualized ribs, clavicles, and shoulders. There is no demonstrated abnormality of the visualized soft tissue structures of the upper abdomen. RAD/Chest 1 View (Portable) IMPRESSION: No acute cardiopulmonary disease. Electronically Signed: Robert Peres MD at 11:18 EDT ,
[2022-08-26] MEDS: 0.9% Normal Saline 1,000 ML 150 ML IV (10:39)
[2022-08-26 10:40] LABS: D-Dimer Quantitative (DVT/PE) 0.27 FEU/ug/m (0.27-0.49)
[2022-08-26] MEDS: Aspirin 81 MG TAB.CHEW 324 MG PO (10:40)
[2022-08-26 10:50] LABS: Anion Gap 8 (5-15); BUN 19 mg/dL (7-18); BUN/Creat Ratio 18.6 RATIO (10-20); Calcium,Total 8.7 mg/dL (8.5-10.1); Chloride 108 mmol/L (98-107); Creatinine, Serum 1.02 mg/dL (0.70-1.30); EST Glomerular Filtration Rate 79 mL/min (>60); Est Glom Filt Rate - Afr Amer 96 mL/min (>60); Estimated Creatinine Clearance 84.55 ml/min; Glucose 104 mg/dL (74-106); Potassium 4.4 mmol/L (3.5-5.1); Sodium Level 137 mmol/L (136-145); Thyroid Stim Hormone (TSH) 4.36 uIU/mL (0.358-3.74); Troponin-I HS (w/2H Reflex) 7 pg/mL (3.0-78.0)
[2022-08-26 11:00] VITALS: BP 124/78; PULSE 46; RESP 22; O2SAT 97
[2022-08-26 12:23] LABS: Reflex Troponin-HS? (from REC) Y
[2022-08-26 12:56] LABS: Troponin-I HS 6 pg/mL (3.0-78.0)
[2022-08-26 13:38] VITALS: BP 110/66; PULSE 56; O2SAT 98
== END 2022-08-26 13:40 | disposition home or self-care (01) ==
PROVIDERS: Emergency Provider Emergency Medicine; PCP Family Medicine; Visit Provider Emergency Medicine
DX: R07.9 Chest pain, unspecified (principal); J44.9 Chronic obstructive pulmonary disease, unspecified; I50.9 Heart failure, unspecified; R53.1 Weakness; R20.0 Anesthesia of skin; R06.00 Dyspnea, unspecified; R00.1 Bradycardia, unspecified; F41.9 Anxiety disorder, unspecified; F17.210 Nicotine dependence, cigarettes, uncomplicated
CPT/HCPCS: 71045; 80048; 84443; 84484; 85025; 85379; 93005; 96360; 96361; 99284; J7030; A4216

== ENCOUNTER 2024-05-22 13:54 | Emergency (ER) | payer MEDICAID, SELFPAY ==
[2024-05-22] VITALS (7 sets, daily range): BP systolic 117–140; BP diastolic 69–94; PULSE 55–76; RESP 16–18; TEMP 36.3–36.6; O2SAT 97–99; BMI 25.2
--- NOTE | 2024-05-22 14:51 | EKG12_ITS ---
Test Reason : CP Blood Pressure : */* mmHG Vent. Rate : 70 BPM Atrial Rate : 70 BPM P-R Int : 174 ms QRS Dur : 98 ms QT Int : 416 ms P-R-T Axes : 57 -27 44 degrees QTcB Int : 449 ms Normal sinus rhythm Nonspecific T wave abnormality Abnormal ECG When compared with ECG of 26-Aug-2022 10:06, Nonspecific T wave abnormality now evident in Lateral leads Confirmed by RORY TARANGO MD ([id number]), writer editor SUDHAKAR MURRY ([id number]) on 05/26/2024 7:30:44 AM Referred By: Nicolette Kumar Confirmed By: RORY TARANGO MD
--- NOTE | 2024-05-22 14:52 | EX.ED.DYSGE1 ---
HPI History of Present Illness Chief Complaint: Chest Pain Informant: patient Narrative Narrative: Patient is a 63-year-old male with history of alcohol abuse, drug abuse (currently sober), heart failure with reduced ejection fraction and COPD presenting with what sounds like an episode of near syncope last night with associated chest pain. States has been worsening shortness breath of the past 3 to 4 weeks. He saw his architectural job captain, clinic on Sunday (1 week ago) where his Sergio course of Lasix as well as restarted on Jardiance for kidney protection). He states he initially was urinating a lot with the Lasix but has had less urination last few days. Notes he did not take the Jardiance or the Lasix today. States last night he started to feel like his throat was tight around his neck and felt very short of breath. He started feel hot and was having sweats. Nausea. He thinks maybe a temperature. He states he checked his blood pressure was 96/47. He felt like he was going to pass out. He notes that he has had a worsening cough for the past month. States overall he has been compliant with his medication but does feel that he is on too many medications and has a significant history of medication noncompliance. Denies any swelling of his legs. Denies any significant chest pain at this time. Initially went to urgent care but it was told he needs to come to the emergency room for evaluation. States he wanted make sure he did have a heart attack. [facility] Medical History COPD (chronic obstructive pulmonary disease) Home Medications ?Medication ?Instructions ?Recorded ?Last Taken ?Type albuterol sulfate 90 mcg/actuation 1 - 2 puff inhalation Q4H PRN PRN 01/03/21 Unknown Rx aerosol inhaler (Ventolin HFA) Wheezing ##1 prednisone 20 mg tablet 20 mg PO BID #10 tabs 01/03/21 Unknown Rx prednisolone acetate 1 % eye 1 drp EACH EYE Q1H #15 mL 06/07/22 Unknown Rx drops,suspension Allergy/AdvReac Type Severity Reaction Status Date / Time NSAIDS (Non-Steroidal Allergy PT UNSURE Verified 05/22/24 13:54 Anti-Inflamma OF REACTION Social History Smoking Status: Current every day smoker tobacco type: cigarettes ROS ROS ED Constitutional Constitutional ED: Reports sweats; Denies chills or fever(s) Eyes Eyes: Reports blurry vision ENT ENT ED: Denies rhinorrhea or sore throat Cardiovascular Cardiovascular: Reports chest pain Respiratory/Chest Respiratory/Chest: Reports cough, dyspnea and sputum Gastrointestinal Gastrointestinal: Reports nausea; Denies abdominal pain, diarrhea or vomiting Genitourinary Genitourinary ED: Denies dysuria, hematuria or urinary frequency Musculoskeletal Musculoskeletal: Denies arthralgias or myalgias Neurologic Neurologic: Reports weakness Psychiatric Psychiatric: Denies anxiety Hematologic/Lymphatic Hematologic/Lymphatic: Denies easy bleeding or easy bruising EXAM Physical Exam Const Vital Signs: 05/22/24 13:55 05/22/24 14:13 05/22/24 14:53 Temperature 97.9 F Temperature Source Temporal Pulse Rate 76 Pulse Rate [Lying] Pulse Rate [Sitting (for 1 minute prior to obtaining)] Pulse Rate [Standing (for 1 minute prior to obtaining)] Respiratory Rate 18 Respiratory Effort Normal Non-Labored Blood Pressure 120/83 H Blood Pressure [Lying] Blood Pressure [Sitting (for 1 minute prior to obtaining)] Blood Pressure [Standing (for 1 minute prior to obtaining)] Blood Pressure Mean 95 Blood Pressure Mean [Lying] Blood Pressure Mean [Sitting (for 1 minute prior to obtaining)] Blood Pressure Mean [Standing (for 1 minute prior to obtaining)] Pulse Ox 98 99 Oxygen Delivery Method Room Air Room Air 05/22/24 14:54 05/22/24 15:00 05/22/24 15:20 Temperature Temperature Source Pulse Rate 69 63 Pulse Rate [Lying] 55 L Pulse Rate [Sitting (for 1 minute prior to obtaining)] 63 Pulse Rate [Standing (for 1 minute prior to obtaining)] 76 Respiratory Rate Respiratory Effort Blood Pressure 137/69 H 137/69 H Blood Pressure [Lying] 117/71 Blood Pressure [Sitting (for 1 minute prior to obtaining)] 117/76 Blood Pressure [Standing (for 1 minute prior to obtaining)] 117/78 Blood Pressure Mean 91 91 Blood Pressure Mean [Lying] 86 Blood Pressure Mean [Sitting (for 1 minute prior to obtaining)] 89 Blood Pressure Mean [Standing (for 1 minute prior to obtaining)] 91 Pulse Ox 99 99 Oxygen Delivery Method 05/22/24 16:00 05/22/24 16:47 Temperature 97.3 F L Temperature Source Pulse Rate 61 61 Pulse Rate [Lying] Pulse Rate [Sitting (for 1 minute prior to obtaining)] Pulse Rate [Standing (for 1 minute prior to obtaining)] Respiratory Rate 16 Respiratory Effort Blood Pressure 140/94 H 140/94 H Blood Pressure [Lying] Blood Pressure [Sitting (for 1 minute prior to obtaining)] Blood Pressure [Standing (for 1 minute prior to obtaining)] Blood Pressure Mean 109 109 Blood Pressure Mean [Lying] Blood Pressure Mean [Sitting (for 1 minute prior to obtaining)] Blood Pressure Mean [Standing (for 1 minute prior to obtaining)] Pulse Ox 97 97 Oxygen Delivery Method Positive well nourished and well developed General Appearance ED: well developed and NAD; Negative for pallor HEENT Reports TM's clear and moist mucous membranes Tympanic Membrane ED: Yes TM's clear Eyes PERRL Neck supple and no JVD Chest Wall inspection of chest normal and palpation of chest normal Resp normal respiratory effort and clear to auscultation bilaterally Auscultation: Negative for rhonchi, wheezes or diminished lung sounds Cardio regular rate, regular rhythm and no murmurs GI normal to inspection, nondistended, normoactive bowel sounds and non-tender Extremity normal to inspection General Extremety ED: Negative for edema General Extremity: Negative for edema Neuro oriented x3 Sensorium / Orientation: alert Motor Exam: Negative for general weakness Psych mental status grossly normal Skin no rashes or lesions noted General Skin Exam: Negative for pallor MDM MDM MDM Narrative Medical decision making narrative: Patient evaluated for chest pain and episode of what sounds like near syncope yesterday. He has had about a month of this progressive shortness of breath. Differential includes pericardial effusion, symptomatic anemia, dehydration, pleural effusion, CHF exacerbation, MIRTA, ACS, myxedema coma and electrolyte abnormality EKG does not show any acute ischemic process. CBC shows polycythemia with a hemoglobin of 17.2 with patient is a smoker. CBC otherwise normal. BMP normal. No electrolyte derangement. Normal kidney function. High sensitive troponin normal at 8. Given that symptom started last night I do not think this requires trending. BNP normal at 15.4 lower suspicion for acute/decompensated heart failure. Clinically patient is not appear fluid overloaded either. TSH is mildly up trending at 6.86 however is not high enough to be consistent with severe process in my opinion. Orthostatic vital signs obtained which were negative. Patient appears euvolemic. I do not think he requires further Lasix/diuresis at this time and is informed of this. The exact cause of his symptoms today is not clear at this time I think he stable for outpatient cardiac follow-up. Patient does tell me that while in the ER he did receive a call from his architectural job captain office will call them back with our recommendations. Is given return precautions. Discharged home in stable condition. Lab Data Attestation: I reviewed the patient's lab results. Labs: Laboratory Results - last 24 hr 05/22/24 14:09 WBC 9.0 RBC 5.56 Hgb 17.2 H Hct 51.7 MCV 93.0 MCH 30.9 MCHC 33.3 RDW Std Deviation 45.8 H RDW Coeff of Kylee 13.4 Plt Count 230 MPV 12.0 Immature Gran % (Auto) 0.300 Neut % (Auto) 55.9 Lymph % (Auto) 31.8 Tift % (Auto) 10.4 H Eos % (Auto) 1.2 Baso % (Auto) 0.4 Absolute Neuts (auto) 5.0 Absolute Lymphs (auto) 2.85 Nucleated RBC % 0 Sodium 139 Potassium 4.2 Chloride 110 H Carbon Dioxide 21.0 Anion Gap 8 BUN 22 H Creatinine 1.19 Estim Creat Clear Calc 71.55 Est GFR (MDRD) Af Amer 80 Est GFR (MDRD) Non-Af 66 BUN/Creatinine Ratio 18.5 Glucose 95 Calcium 8.9 Magnesium 2.5 Troponin I High Sens 8 B-Natriuretic Peptide 15.4 TSH 6.860 H Radiography Chest X-Ray - ED: 2 View, Read by ED Physician, Read by Radiologist and No Acute Disease Diagnostic Testing: Clinical Impression(s) from Imaging Studies Chest X-Ray 05/22/24 15:04 IMPRESSION: No acute cardiopulmonary process. Reading Location: [facility] Rhythm Strip Rhythm Strip: Sinus Rhythm Rate: 70 Ectopy: None EKG Initial EKG: Attestation: I personally reviewed and interpreted this EKG as follows: Interpretation: Sinus Rhythm Comments: Normal sinus rhythm at a rate of 70 bpm Normal axis Normal intervals Nonspecific T wave changes Prior EKG tracings: available for review Prior: Unchanged Discharge Plan Triage Chief Complaint: Chest Pain ED Provider: Nicolette Kumar Dx/Rx/DC Orders Clinical Impression: Dyspnea, Chest pain of uncertain etiology Instructions: ED Chest Pain, Uncertain Cause, ED Dyspnea Prescriptions: No Action albuterol sulfate [Ventolin HFA] 1 INHALER inhaler 1 - 2 puff inhalation Q4H PRN PRN (Reason: Wheezing) Qty: 1 0RF prednisone 20 mg tablet 20 mg PO BID Qty: 10 0RF prednisolone acetate 1 % drops,suspension 1 drp EACH EYE Q1H Qty: 15 0RF Primary Care Provider: Eddy Cooper Referrals: Eddy Cooper MD [Primary Care Provider] - Activity Restrictions/Additional Instructions: Your lab work showed normal BNP of 15.4 with no signs of extra fluid on the lungs on your chest x-ray. It appears that you are euvolemic at this time (not too much or not too little fluid). I do not think you need to continue the Lasix based on your workup today. Please follow-up with your architectural job captain for further recommendations however. Please return if you have a progression worsening of your symptoms. Print Language: Macanese Disposition Disposition: Home, Self Care
--- NOTE | 2024-05-22 15:04 | RAD_ITS ---
EXAM: XR Chest, 2 Views CLINICAL INDICATION: TECHNIQUE: Frontal and lateral views of the chest. COMPARISON: No relevant prior studies available. FINDINGS: LUNGS AND PLEURAL SPACES: Unremarkable. No consolidation. No pneumothorax. HEART: Unremarkable. No cardiomegaly. MEDIASTINUM: Unremarkable. Normal mediastinal contour. BONES/JOINTS: Unremarkable. No acute fracture. RAD/Chest PA and Lateral IMPRESSION: No acute cardiopulmonary process. Reading [facility]
[2024-05-22 15:07] LABS: Absolute Lymphocyte Count 2.85 X10^3/uL (0.83-4.51); Basophil# 0.04 X10^3/uL; Basophil% 0.4 % (0-1); Eosinophil# 0.11 X10^3/uL; Eosinophils% 1.2 % (0-5); Hematocrit 51.7 % (40-54); Hemoglobin 17.2 g/dL (13.0-16.5); Lymphocyte # 2.85 X10^3/ul (0.83-4.51); Lymphocyte % 31.8 % (19-41); Mean Corp Hgb Conc 33.3 g/dL (32-36); Mean Corpuscular Hgb 30.9 pg (27.0-32.0); Monocyte# 0.93 X10^3/uL; Monocyte% 10.4 % (0-10); NRBC Flagged by Analyzer 0 % (0-5); Neutrophil # 5.01 X10^3/uL (2.7-7.7); Neutrophil % 55.9 % (47-70); Platelet Count 230 K/mm3 (150-450); RBC Distribution Width CV 13.4 % (11.6-14.6); RBC Distribution Width SD 45.8 fl (35.1-43.9); Red Blood Count 5.56 M/mm3 (4.6-6.2)
[2024-05-22 15:46] LABS: Anion Gap 8 (5-15); BUN 22 mg/dL (7-18); BUN/Creat Ratio 18.5 RATIO (10-20); Calcium,Total 8.9 mg/dL (8.5-10.1); Chloride 110 mmol/L (98-107); Creatinine, Serum 1.19 mg/dL (0.70-1.30); EST Glomerular Filtration Rate 66 mL/min (>60); Est Glom Filt Rate - Afr Amer 80 mL/min (>60); Estimated Creatinine Clearance 71.55 ml/min; Glucose 95 mg/dL (74-106); Magnesium 2.5 mg/dL (1.6-2.6); Potassium 4.2 mmol/L (3.5-5.1); Sodium Level 139 mmol/L (136-145); Troponin-I HS 8 pg/mL (3.0-78.0)
[2024-05-22 15:52] LABS: BNP,B-Type NATRIURETIC PEPTIDE 15.4 pg/mL (0-100)
== END 2024-05-22 16:58 | disposition home or self-care (01) ==
PROVIDERS: Emergency Provider Emergency Medicine; PCP Family Medicine; Referring Provider Emergency Medicine; Visit Provider Emergency Medicine
DX: R06.00 Dyspnea, unspecified (principal); I50.20 Unspecified systolic (congestive) heart failure; J44.9 Chronic obstructive pulmonary disease, unspecified; R07.9 Chest pain, unspecified; F17.210 Nicotine dependence, cigarettes, uncomplicated; Z91.148 Patient's other noncompliance with medication regimen for other reason
CPT/HCPCS: 71046; 80048; 83735; 83880; 84443; 84484; 85025; 87631; 93005; 99284; A4216